=== PATIENT | female | born 1965 | race Caucasian/White ===

== ENCOUNTER → 2017-01-02 | Day surgery (SDC) | payer OTHER ==
[~2017-01-02] MED LIST: ACETAMINOPHEN 1000 MG/100 ML VIAL IV ONE; BUPIVACAINE/EPINEPHRINE 0.25% 50 ML VIAL ONE; LACTATED RINGER'S 1000 ML INJ 1,000 ML ONE; LIDOCAINE 1%/EPINEPHrine 1:100,000 SOLN 30 ML VIAL ONE; MIDAZOLAM HCL 2 MG/2 ML VIAL ONE; MIRTA15 PO; MORPHINE SULFATE 4 MG/ML INJ ONE; ONDANSETRON HCL 4 MG/2 ML VIAL IV PUSH ONE; PROPOFOL 200 MG/20 ML AMP IV ONE; RISP1 PO; SODIUM CHLOR 0.9% 250 ML INJ 250 ML IV ONE; TRAZ50TA78 PO; VANCOMYCIN HCL 1000 MG VIAL ONE; ceFAZolin INJ 1,000 MG VIAL ONE
--- NOTE | 2017-01-22 07:39 | MP ---
cc: SAADIA HEARN M.D. EULALIA ARECHIGA DATE OF PROCEDURE 01/02/2017 PROCEDURE Left simple mastectomy. PREOPERATIVE DIAGNOSIS Previous right breast cancer. POSTOPERATIVE DIAGNOSIS Previous right breast cancer. OPERATIVE REPORT ANESTHESIA LMA. SURGEON MD Ignacio ESTIMATED BLOOD LOSS 200 mL. FLUIDS 1150 mL crystalloid. COMPLICATIONS None. DRAINS CRUZ drain x 1. SPECIMEN Left breast to pathology. PROCEDURE IN DETAIL The patient was taken to the operating room after marking the correct side and placed on the operating table in the supine position. After laryngeal mask anesthesia was instituted, the left breast was prepped and draped in the field. Time-out was taken confirming the correct patient site and procedure to be performed. A Patey-type incision was made around the nipple-areolar complex in a slightly oblique fashion to match the patient's incision on the right side. Dissection was carried down to the chest wall superiorly and then inferiorly to the inframammary line. The breast was removed in a medial to lateral fashion off of the chest wall. When proceeding laterally, the breast was removed off of the lateral chest wall with care taken to preserve all of the musculature and lymph nodes. The breast was oriented with silk sutures and passed off the table. All bleeding was meticulously controlled with electrocautery. With hemostasis assured, a drain was brought out via an inferiorly-based separate stab incision and fixed to the skin with a 3-0 nylon suture. The wound was then closed in two layers with interrupted 2-0 Vicryl suture and 5-0 PDS in a running subcuticular fashion. The wound was dressed with Steri-Strips and a 4x4 applied over the drain. The patient was extubated and taken back to the recovery room in stable condition. She tolerated the procedure well. Sponge, needle and instrument counts were reported to be correct. MD RAFAELA Tracy/LIS /12:58 PM /7:22 AM
== END | disposition home or self-care (01) ==
LOC: ESDC 07:39
PROVIDERS: ATTEND Surgery Trauma Surgery
DX: N63 Unspecified lump in breast (principal); Z85.3 Personal history of malignant neoplasm of breast
CPT/HCPCS: 00400; 19303; 88307; J0131; J0690; J2250; J2270; J2405; J3010; J3370; J7050; J7120

== ENCOUNTER → 2017-10-22 | Outpatient (CLI) | payer MEDICARE, MEDICAID ==
[~2017-10-22] MED LIST changes: -ACETAMINOPHEN 1000 MG/100 ML VIAL IV ONE; -BUPIVACAINE/EPINEPHRINE 0.25% 50 ML VIAL ONE; +CEPH-460 PO; -LACTATED RINGER'S 1000 ML INJ 1,000 ML ONE; -LIDOCAINE 1%/EPINEPHrine 1:100,000 SOLN 30 ML VIAL ONE; +LURA20TA PO; -MIDAZOLAM HCL 2 MG/2 ML VIAL ONE; -MORPHINE SULFATE 4 MG/ML INJ ONE; -ONDANSETRON HCL 4 MG/2 ML VIAL IV PUSH ONE; -PROPOFOL 200 MG/20 ML AMP IV ONE; -SODIUM CHLOR 0.9% 250 ML INJ 250 ML IV ONE; -TRAZ50TA78 PO; -VANCOMYCIN HCL 1000 MG VIAL ONE; -ceFAZolin INJ 1,000 MG VIAL ONE
--- NOTE | 2017-10-22 10:33 | RADRPT ---
EXAM DATE/TIME: 10/22/2017 00:00 [facility] COMPARISON: No previous studies available for comparison. INDICATIONS : Dysphagia FLUORO TIME: 0.8 minutes IMAGE COUNT: 0 CONTRAST: Dose as prescribed by speech pathologist. MEDICAL HISTORY : None. SURGICAL HISTORY : None. ENCOUNTER: Initial ACUITY: 2 months PAIN SCORE: 0/10 LOCATION: Bilateral neck FINDINGS: A modified barium swallow was performed with speech pathology. Patient was given a variety of liquids to swallow. No aspiration or lingular penetration is visualized. Patient swallowed the barium tablet without diff iculty. For a full detailed report, see report by the speech pathologist. CONCLUSION: Normal examination. Please refer to speech pathology report for further details. Jonah Harry MD on October 22, 2017 at 10:31 Board Certified Radiologist. This report was verified electronically.
== END ==
LOC: HRAD 09:47
PROVIDERS: ATTEND Specialist
DX: R13.10 Dysphagia, unspecified (principal)
CPT/HCPCS: 74230; 92611; G8996; G8997; G8998